=== PATIENT | female | born 1990 | race Hispanic/Latino ===

== ENCOUNTER 2019-04-05 19:14 | Observation (INO) | payer OTHER ==
[~2019-04-05] VITALS: Ht 157.5 cm; Wt 91.6 kg
[2019-04-05] MEDS ORDERED: FERR-82 PO (19:32)
[2019-04-05] MEDS ORDERED: PREN-196 PO (19:32)
[2019-04-05 19:54] LABS: APPEARANCE,URINE Clear (CLEAR); BILIRUBIN,URINE Negative (NEGATIVE); COLOR,URINE Yellow (YELLOW); GLUCOSE, URINE (UA) Negative (NEGATIVE); KETONES,URINE >=80 mg/dL (NEGATIVE); LEUKOCYTE ESTERASE ,URINE Moderate (NEGATIVE); NITRATE,URINE Negative (NEGATIVE); OCCULT BLOOD,URINE Negative (NEGATIVE); PH,URINE 5.5 (5.0-8.0); PROTEIN,URINE Negative (NEGATIVE)
[2019-04-05 20:01] LABS: AMPHET/METH SCREEN,URINE NEGATIVE (NEGATIVE); BARBITURATE SCREEN, URINE NEGATIVE (NEGATIVE); BENZODIAZEPINES SCREEN,URINE NEGATIVE (NEGATIVE); CANNABINOID SCREEN,URINE NEGATIVE (NEGATIVE); COCAINE SCREEN,URINE NEGATIVE (NEGATIVE); OPIATE SCREEN,URINE NEGATIVE (NEGATIVE); PHENCYCLIDINE SCREEN,URINE NEGATIVE (NEGATIVE)
[2019-04-05 20:02] LABS: RBC,URINE 0-1 /HPF (0-1)
[2019-04-05 20:03] LABS: BACTERIA,URINE Few /HPF (None Seen); SQUAMOUS EPITHELIAL CELL,UR Few /HPF (0-2)
[2019-04-05] MEDS ORDERED: PROMETHAZINE HCL 25 MG/ML 1ML AMPULE IM SCH (20:45)
[2019-04-05] MEDS ORDERED: CELESTONE SOLUSPAN 6 MG/ML 5ML VIAL IM SCH (21:15)
[2019-04-05] MEDS: LACTATED RINGERS 1000ML 1,000 ML IV SCH ×2 (21:19→23:28)
[2019-04-06] MEDS ORDERED: TERBUTALINE SULFATE VIAL 1MG/ML SQ ONE ×2 (01:40→01:45)
== END 2019-04-06 04:35 | disposition home or self-care (01) ==
LOC: LDH 19:14
PROVIDERS: ADMIT Specialist; ATTEND Specialist
DX: O21.2 Late vomiting of pregnancy (principal); O26.893 Other specified pregnancy related conditions, third trimester; R10.9 Unspecified abdominal pain; M54.5 Low back pain; Z3A.28 28 weeks gestation of pregnancy
CPT/HCPCS: 80305; 81001; 96360; 96361 ×2; 96372 ×2; G0378 ×9; J0702; J2550; J3105; J7120 ×2

== ENCOUNTER 2019-04-06 19:45 | Observation (INO) | payer OTHER ==
[~2019-04-06] VITALS: Ht 157.5 cm; Wt 91.6 kg
[~2019-04-06 19:45] MED LIST: FERR-82 PO; PREN-196 PO
[2019-04-06] MEDS ORDERED: CELESTONE SOLUSPAN 6 MG/ML 5ML VIAL IM SCH (20:15)
== END 2019-04-06 20:35 | disposition home or self-care (01) ==
LOC: LDH 19:45
PROVIDERS: ADMIT Specialist; ATTEND Specialist
DX: Z34.93 Encounter for supervision of normal pregnancy, unspecified, third trimester (principal); Z3A.29 29 weeks gestation of pregnancy
CPT/HCPCS: 96372; G0378 ×2; J0702

== ENCOUNTER 2019-05-26 09:33 | Observation (INO) | payer OTHER ==
[2019-05-26 10:52] LABS: BASOPHILS % (AUTO) 0.8 % (0.0-5.0); EOSINOPHILS % (AUTO) 1.6 % (0.0-8.0); HEMATOCRIT 29.6 % (36-48); LYMPHOCYTES % (AUTO) 26.7 % (21.0-51.0); MEAN CORPUSCULAR HEMOGLOBIN 19.3 pg (27.0-33.0); MEAN CORPUSCULAR VOLUME 64.4 fL (79-99); MONOCYTES % (AUTO) 5.4 % (3.0-13.0); NEUTROPHILS % (AUTO) 65.5 % (40.0-77.0); NUCLEATED RED BLOOD CELLS 0.3 % (0.0-0.19); PLATELET COUNT (AUTO) 232 K/uL (130-400); RED BLOOD CELL COUNT(AUTO) 4.59 MIL/uL (4.00-5.50); RED CELL DISTRIBUTION WIDTH 18.9 % (11.0-15.5); WHITE BLOOD COUNT (AUTO) 8.3 K/uL (4.8-10.8)
[2019-05-26 11:30] LABS: ALBUMIN 2.7 g/dL (3.5-5.0); BILIRUBIN,DIRECT 0.1 mg/dL (0.0-0.3); BILIRUBIN,TOTAL 0.4 mg/dL (0.2-1.0); TOTAL PROTEIN, SERUM 7.6 g/dL (6.0-8.3)
[2019-05-26 12:12] LABS: B-TYPE NATRIURETIC PEPTIDE 42 pg/mL (0-100)
[2019-05-26 14:13] LABS: APPEARANCE,URINE Cloudy (CLEAR); BILIRUBIN,URINE Negative (NEGATIVE); COLOR,URINE Yellow (YELLOW); GLUCOSE, URINE (UA) Negative (NEGATIVE); KETONES,URINE 15 mg/dL (NEGATIVE); LEUKOCYTE ESTERASE ,URINE Small (NEGATIVE); NITRATE,URINE Negative (NEGATIVE); OCCULT BLOOD,URINE Negative (NEGATIVE); PROTEIN,URINE Negative (NEGATIVE)
[2019-05-26] MEDS: LACTATED RINGERS 1000ML IV SCH ×2 (14:15→15:10)
[2019-05-26 14:22] LABS: BACTERIA,URINE Many /HPF (None Seen); RBC,URINE 0-1 /HPF (0-1); SQUAMOUS EPITHELIAL CELL,UR Moderate /HPF (0-2)
== END 2019-05-26 16:03 | disposition home or self-care (01) ==
LOC: EDH 09:33 → LDH 13:02
PROVIDERS: ADMIT Specialist; ATTEND Specialist
DX: O26.893 Other specified pregnancy related conditions, third trimester (principal); R42 Dizziness and giddiness; Z88.6 Allergy status to analgesic agent; Z90.49 Acquired absence of other specified parts of digestive tract; Z3A.36 36 weeks gestation of pregnancy
CPT/HCPCS: 36415; 80076; 81001; 82550; 83880; 84484; 85025; 93005; 96360; 96361; 99284; G0378 ×3; J7120

== ENCOUNTER 2019-06-06 12:00 | Inpatient (IN) | payer OTHER ==
[~2019-06-06] VITALS: Ht 157.5 cm; Wt 93.4 kg
[2019-06-09 18:19] LABS: HEMATOCRIT 31.8 % (36-48); MEAN CORPUSCULAR HEMOGLOBIN 21.3 pg (27.0-33.0); MEAN CORPUSCULAR VOLUME 68.6 fL (79-99); NUCLEATED RED BLOOD CELLS 0.1 % (0.0-0.19); PLATELET COUNT (AUTO) 232 K/uL (130-400); RED BLOOD CELL COUNT(AUTO) 4.63 MIL/uL (4.00-5.50); RED CELL DISTRIBUTION WIDTH 23.5 % (11.0-15.5); WHITE BLOOD COUNT (AUTO) 8.3 K/uL (4.8-10.8)
[2019-06-10] MEDS ORDERED: CEFAZOLIN SODIUM 1 GM VIAL ONE (07:12)
[2019-06-10] MEDS ORDERED: DURAMORPH PF1 MG/ML 10ML AMP IV ONE (07:16)
[2019-06-10] MEDS ORDERED: OXYTOCIN 10 USP UNITS/ML ONE (07:17)
[2019-06-10] MEDS ORDERED: PHENYLEPHRINE HCL 10 MG/ML 1ML VIAL IV ONE (08:11)
[2019-06-10] MEDS ORDERED: SODIUM CHLORIDE 0.9% 10 ML VIAL ONE (08:11)
[2019-06-10] MEDS ORDERED: GLYCOPYRROLATE 1 MG/5 ML SYRINGE ONE (08:12)
[2019-06-10] MEDS ORDERED: LACTATED RINGERS 1000ML 1,000 ML IV SCH (09:15)
[2019-06-10] MEDS ORDERED: MEPERIDINE-PF 75 MG/ML SYG IM PRN (09:15)
[2019-06-10] MEDS ORDERED: CEFAZOLIN SODIUM 1 GM VIAL IVP PRN (09:15)
[2019-06-10] MEDS ORDERED: SODIUM CHLORIDE 0.9% 10 ML VIAL IVP PRN (09:15)
[2019-06-10] MEDS ORDERED: OXYTOCIN-LR 20 UNITS/1000 ML 1,000 ML IV PRN (09:15)
[2019-06-10] MEDS ORDERED: NALOXONE HCL 0.4 MG/1 ML ML IVP PRN ×3 (10:15)
[2019-06-10] MEDS ORDERED: ONDANSETRON HCL 4 MG/2 ML VIAL IVP PRN (10:15)
[2019-06-10] MEDS ORDERED: MEPERIDINE-PF 100 MG/ML SYG ONE (10:29)
[2019-06-10] MEDS: PROMETHAZINE HCL 25 MG/ML 1ML AMPULE IM PRN (10:37)
--- NOTE | 2019-06-10 10:38 | NUR ---
Pt c/o pain, given 75mg of Demerol from 100mg vial. 0.75ml given SIVP, 0.25ml wasted
[2019-06-10 10:56] VITALS: BP 119/63
[2019-06-10] MEDS: DiphenhydrAMINE HCL 50 MG/ML VIAL IVP PRN ×2 (11:29→18:03)
[2019-06-10] MEDS ORDERED: DiphenhydrAMINE HCL 50 MG/ML VIAL IV PRN (11:30)
[2019-06-10 16:00] VITALS: BP 110/56
[2019-06-10] MEDS: DEXTROSE 5 %-0.45 % NACL 1,000 ML IV PRN (18:07)
[2019-06-10 19:47] VITALS: BP 110/71
[2019-06-10 23:46] VITALS: BP 117/65
[2019-06-11] MEDS: DEXTROSE 5 %-0.45 % NACL 1,000 ML IV PRN (02:02)
[2019-06-11] MEDS ORDERED: MEPERIDINE-PF 50 MG/ML SYG ONE (02:47)
[2019-06-11] MEDS ORDERED: MEPERIDINE-PF 25 MG/ML SYG ONE (02:48)
[2019-06-11] MEDS: PROMETHAZINE HCL 25 MG/ML 1ML AMPULE IM PRN (02:53)
[2019-06-11 03:32] VITALS: BP 102/60
[2019-06-11 06:48] LABS: HEMATOCRIT 25.4 % (36-48); MEAN CORPUSCULAR HGB CONC 30.6 g/dL (32.0-36.0); MEAN CORPUSCULAR VOLUME 68.5 fL (79-99); PLATELET COUNT (AUTO) 176 K/uL (130-400); RED BLOOD CELL COUNT(AUTO) 3.71 MIL/uL (4.00-5.50); WHITE BLOOD COUNT (AUTO) 8.1 K/uL (4.8-10.8)
--- NOTE | 2019-06-11 07:20 | NUR ---
BELINDA NEGRON, PT. INST TO CALL FOR ASSIST BEFORE GETTING OOB, VERBALIZED UNDERSTANDING, Addendum: 06/11/19 at 7929 by YAJAIRA VALLEJO RN RN Amended: Links added.
--- NOTE | 2019-06-11 07:30 | NUR ---
PATIENT ADVANCED DRESSING REMOVED, INCISION INTACT, NO ODOR OR DRAINAGE TO INCISION. ABDOMINAL BINDER APPLIED. PATIENT ASSISTED TO CHAIR. PATIENT TOLERATED WELL, STATED SHE DID NOT HAVE ANY PAIN. PATIENT INSTRUCTED TO CALL FOR ASSISTANCE WHEN NEEDING TO VOID.
[2019-06-11 07:31] VITALS: BP 108/73
--- NOTE | 2019-06-11 08:05 | NUR ---
PROVIDER ROUNDING DR. JON AT BEDSIDE TO ASSESS PATIENT. DISCHARGE TEACHING GIVEN TO PATIENT. NEW ORDERS RECEIVED TO BE DISCHARGED TODAY. NEW ORDERS WILL BE CARRIED OUT.
--- NOTE | 2019-06-11 08:05 | NUR ---
PHYSICIAN ROUNDING DR. JON AT BEDSIDE TO ASSESS PATIENT. DISCHARGE INSTRUCTIONS GIVEN TO PATIENT. NEW ORDERS RECEIVED AND WILL BE CARRIED OUT.
[2019-06-11 08:11] LABS: HEPATITIS Bs ANTIGEN SCREEN P Negative (Negative)
[2019-06-11] MEDS ORDERED: LANOLIN 30GM OINTMENT TP PRN (08:15)
[2019-06-11] MEDS ORDERED: BISACODYL 10 MG SUPP.RECT RC PRN (08:15)
[2019-06-11] MEDS ORDERED: ACETAMINOPHEN EXTRA STRENGTH 500 MG TABLET PO PRN (08:15)
[2019-06-11] MEDS: SIMETHICONE 80 MG TAB.CHEW PO PRN ×3 (08:49→20:18)
[2019-06-11] MEDS: DOCUSATE SODIUM 100 MG CAP PO SCH ×2 (08:49→20:18)
[2019-06-11] MEDS: ACETAMINOPHEN-CODEINE 300/30MG TAB PO PRN ×2 (08:50→19:24)
[2019-06-11] MEDS: DIPH,PERTUSS(ACELL),TET VAC/PF 0.5 ML VIAL IM SCH (11:30)
[2019-06-11] MEDS: HYDROCODONE/ACETAMINOPHEN 5/325 MG TAB PO PRN ×2 (15:10→23:56)
[2019-06-11 16:07] VITALS: BP 110/57
[2019-06-11 19:15] VITALS: BP 110/60
[2019-06-11 23:45] VITALS: BP 128/75
[2019-06-12] MEDS: DIPH,PERTUSS(ACELL),TET VAC/PF 0.5 ML VIAL IM SCH (03:20)
[2019-06-12 03:22] VITALS: BP 136/73
[2019-06-12 07:30] VITALS: BP 124/69
--- NOTE | 2019-06-12 07:45 | NUR ---
PROVIDER ROUNDING DR JON AT BEDSIDE TO ASSESS PATIENT. DISCHARGE INSTRUCTIONS AND TEACHING GIVEN TO PATIENT. PATIENT TOLD TO FOLLOW UP WITH DR. JON ONE WEEK AFTER DISCHARGE. DISCHARGE ORDERS GIVEN. NEW ORDERS WILL BE CARRIED OUT.
[2019-06-12] MEDS: DOCUSATE SODIUM 100 MG CAP PO SCH (08:51)
[2019-06-12] MEDS: SIMETHICONE 80 MG TAB.CHEW PO PRN (08:51)
--- NOTE | 2019-06-12 11:28 | NUR ---
DISCHARGE TEACHING DISCHARGE TEACHING GIVEN TO PATIENT. PATIENT INSTRUCTED ON NEW PRESCRIPTIONS. PATIENT VERBALIZED UNDERSTANDING AND VERBALIZED SHE HAD NO FURTHER QUESTIONS. SALINE LOCK REMOVED FROM L. HAND.
--- NOTE | 2019-06-12 12:40 | NUR ---
PATIENT DISCHARGE PATIENT TAKEN TO [facility] VIA WHEELCHAIR ALONG WITH INFANT ACCOMPANIED BY SIGNIFICANT OTHER. PATIENT TOLERATED WELL, STATING SHE HAD NO PAIN OR DISCOMFORT AT THIS TIME. PATIENT ASSISTED INTO BACK SEAT OF PRIVATE VEHICLE. BABY STRAPPED IN CARSEAT CARRIER.
== END 2019-06-12 12:40 | disposition home or self-care (01) | DRG 785 ==
LOC: EDSTATUS 12:00 → LDH 06-10 05:39 → WSH 06-10 10:56
PROVIDERS: ADMIT Specialist; ATTEND Specialist
PROC: 0UB70ZZ Excision of Bilateral Fallopian Tubes, Open Approach (ICD-10-PCS; 2019-06-10)
PROC: 10D00Z1 Extraction of Products of Conception, Low, Open Approach (ICD-10-PCS; principal; 2019-06-10 07:30)
DX: O34.211 Maternal care for low transverse scar from previous cesarean delivery (principal); Z30.2 Encounter for sterilization; Z37.0 Single live birth; Z3A.38 38 weeks gestation of pregnancy
CPT/HCPCS: 36415; 59510; 85027; 86592; 86850; 86900; 86901; 87340; 88302; 90715; A4344; G0378; J0690; J1200; J2175; J2274; J2370; J2550; J2590; J3490; J7120